=== PATIENT | male | born 1995 | race Caucasian/White ===

== ENCOUNTER → 2016-10-27 | Outpatient (CLI) | payer BC, OTHER ==
[2016-10-27 16:59] LABS: Basophils # (A) 0.1 k/uL (0-0.2); Basophils % (A) 1 %; CHCM 32.6; Eosinophils # (A) 0.2 k/uL (0-0.7); Eosinophils % (A) 1 %; HCT 42.2 % (39.0-53.0); HDW 2.54; HGB 13.6 gm/dL (13.0-17.5); Luc # (Auto) 0.15; Luc % (Auto) 1; Lymphocytes # (A) 3.1 k/uL (1.0-4.8); Lymphocytes % (A) 28 %; MCH 26.8 pg (25.0-35.0); MCHC 32.2 g/dL (31.0-37.0); MCV 83.5 fL (80.0-100.0); Mean Platelet Volume 6.9; Monocytes # (A) 0.6 k/uL (0-1.0); Monocytes % (A) 6 %; Neutrophils # (A) 6.9 k/uL (1.3-7.7); Neutrophils % (A) 63 %; RBC 5.06 m/uL (4.30-5.90); RDW 12.8 % (11.5-15.5); WBC (Perox) 11.59
[2016-10-27 17:04] LABS: INR 1.1 (<1.1); Partial Thromboplastin Time 25.7 sec (22.0-30.0); Prothrombin Time 10.9 sec (9.0-12.0)
[2016-10-27 17:12] LABS: Potassium 4.4 mmol/L (3.5-5.1)
== END | disposition home or self-care (01) ==
LOC: LABPAT 16:35
PROVIDERS: ATTEND Orthopaedic Surgery
DX: Z01.812 Encounter for preprocedural laboratory examination (principal); S82.841D Displaced bimalleolar fracture of right lower leg, subsequent encounter for closed fracture with routine healing
CPT/HCPCS: 80051; 85025; 85610; 85730

== ENCOUNTER 2016-10-29 13:55 | Observation (INO) | payer BC, OTHER ==
[2016-10-28 10:58] VITALS: BMI 24.4
--- NOTE | 2016-10-29 11:15 | HP ---
DATE OF ADMISSION: CHIEF COMPLAINT: Right ankle pain. HISTORY OF PRESENT ILLNESS: The patient is a 21-year-old, self-employed male who presents with right ankle pain after an injury on 10/25/2016. He jumped off a swing approximately 5 feet landing on his right side. He twisted his ankle. He is unable to bear weight after that. He went to the emergency room and had it reduced. He has been in a splint since. He denies previous injury. PAST MEDICAL HISTORY: Negative. CURRENT MEDICATIONS: None. He has allergies to AMOXICILLIN. FAMILY HISTORY: Negative. SOCIAL HISTORY: Negative for current tobacco or alcohol use. A 16-point review of systems otherwise reviewed and is noncontributory. On examination, the patient is approximately 6 foot tall, 180 pounds of mesomorphic habitus. He is alert and oriented x4. HEENT exam is nonfocal. He is nontender about the cervical, thoracic and lumbar spine. He has painless passive motion of the right hip. He is nontender about the right knee and proximal fibula. On examination of the right ankle he has moderate medial and lateral swelling. Skin is intact. He is tender over the distal fibula and the medial malleolus. His distal neurovascular exam appears to be intact in the right lower extremity. No mid or forefoot tenderness is noted. X-rays to include 2 views of the right ankle obtained in the office in the cast show a displaced bimalleolar ankle fracture with comminution of the distal fibular fragment. IMPRESSION: Displaced right bimalleolar ankle fracture. RECOMMENDATIONS: I talked to the patient at length regarding his treatment options. At this point, I recommend proceeding with surgery. We will plan to proceed with open reduction and internal fixation. Risks and benefits are discussed at length in layman terms.
[~2016-10-29 13:55] MED LIST: DEXAMETHASONE SOD PHOSPHATE 10 MG/ML 1 ML VIAL IV ONE; HYDROmorphone 1 MG/ML 1 ML SYRINGE IVP PRN; MIDAZOLAM 2 MG/2 ML VIAL IV PRN; ONDANSETRON 4 MG/2 ML VIAL IVP ONE; SCOPOLAMINE 1.5MG/72HR PATCH TRANSDERM ONE; ceFAZolin 2 GM in SODIUM CHLORIDE 0.9% 100 ML IVPB ONE
[2016-10-29 14:12] VITALS: RESP 16
[2016-10-29] MEDS ORDERED: LIDOCAINE 1% 20 ML VIAL (10MG/ML) FOR IV START INTRADERMA ONE (14:23)
[2016-10-29] MEDS: LACTATED RINGERS 1,000 ML IV SCH (14:23)
[2016-10-29] MEDS ORDERED: MIDAZOLAM 2 MG/2 ML VIAL ONE (14:56)
[2016-10-29] MEDS ORDERED: PROPOFOL 10 MG/ML 20 ML VIAL IV ONE (14:56)
[2016-10-29] MEDS ORDERED: fentaNYL (PF) 50 MCG/ML 2 ML AMP ONE (14:56)
[2016-10-29] MEDS ORDERED: ceFAZolin 1,000 MG in SODIUM CHLORIDE 0.9% 1,000 ML IRRIGATION ONE (15:26)
[2016-10-29] MEDS ORDERED: LACTATED RINGERS 1,000 ML IV ONE (16:17)
[2016-10-29] MEDS ORDERED: ONDANSETRON 4 MG/2 ML VIAL IVP PRN (16:39)
[2016-10-29] MEDS ORDERED: HYDROmorphone 1 MG/ML 1 ML SYRINGE IVP PRN (16:39)
--- NOTE | 2016-10-29 16:39 | XR ---
EXAMINATION TYPE: XR ankle limited RT DATE OF EXAM: 10/29/2016 4:27 PM COMPARISON: NONE HISTORY: Open reduction internal fixation, fracture TECHNIQUE: 2 images FINDINGS: Open reduction internal fixation of the distal fibula with plate and screws is evident. Scr ews placed through the medial malleolus of the distal tibia. IMPRESSION: 1. Fluoroscopy documenting open reduction internal fixation ankle repair
[2016-10-29] MEDS ORDERED: HYDROcodone/APAP 7.5-325MG 1 EACH TAB PO PRN (16:40)
--- NOTE | 2016-10-29 16:40 | FL ---
Fluoroscopy INDICATION: Pain FINDINGS: Fluoroscopy time: 45 seconds. Images obtained: 2. IMPRESSIONS: 1. Documentation of fluoroscopy.
--- NOTE | 2016-10-29 16:44 | P.OP ---
Date of Procedure: 10/29/16 Preoperative Diagnosis: Displaced right bimalleolar ankle fracture Postoperative Diagnosis: Same Procedure(s) Performed: Open reduction and internal fixation right bimalleolar ankle fracture Implants: [place] 6-hole one third tubular plate Anesthesia: spinal Surgeon: Joey Alonzo Assembly Press Operator #1: Casey Rucker Estimated Blood Loss (ml): 25 Pathology: none sent Condition: stable Disposition: PACU Indications for Procedure: The patient's a 21-year-old male who presents with right ankle pain after a recent fall. He was noted have a closed displaced bimalleolar ankle fracture. A discussion of the risks and benefits of operative intervention versus conservative measures was made with patient. He opted to proceed with surgery. Operative risks to include infection, neurovascular injury, development of blood clots, possible development of nonunion, possible development of malunion and need for subsequent procedures was discussed. Informed consent was obtained. Operative Findings: As below Description of Procedure: The patient was brought to the operating room, and after induction of spinal anesthesia the right lower extremity was prepped and draped in a normal fashion. The limb was elevated to facilitate exsanguination. The tourniquet was inflated to 270 mmHg. A 8 cm lateral incision was then made just along the subcutaneous border of the fibula. The skin was incised sharply. Subcutaneous tissues were divided bluntly. A branch of the superficial peroneal nerve was identified and retracted. The periosteum was elevated. The fracture site was identified and cleaned of clot and debris. There was a large posterior intercalary fragment. The fibular length was restored. A 6-hole one third tubular plate was then attached with 3.5 mm cortical screws of the appropriate length. Attempt was made to incorporate the intercalary fragment. Fluoroscopy was used to check the adequacy the reduction and gnosticism of fibular length. Attention was then paid towards the medial malleolar fracture. A 4 cm incision was made along the medial malleolus. Skin was incised sharply. Subcu tissues were divided bluntly. The fracture site was identified and cleaned of clot and debris. The medial talar dome was inspected. The fracture was then reduced and held in place with 2 guidewires. A cannulated drill was used over these. 4.0 mm x 44 mm cannulated partially-threaded screws were then inserted. There was good purchase and compression at the fracture site. Final fluoroscopic views to include AP mortise and lateral view showed adequate reduction of the medial malleolar fracture as well as the fibular shaft fracture. The mortise appeared to be intact and stable. A Coton test was performed and the syndesmosis appeared stable. The wounds were irrigated with normal saline. The subcu tissues were reapproximated with interrupted 2-0 Vicryl sutures. The skin closure proximal with adarsh. A sterile dressing was applied in addition to a bulky posterior splint. The tourniquet was deflated with approximately 1 hour total tourniquet time. The patient was awoken from sedation and transferred to recovery room in good condition. Blood loss was estimated 25 mL. No complications were incurred. Sponge and needle counts were correct at the end the case.
[2016-10-29] MEDS: HYDROcodone/APAP 7.5-325MG 1 EACH TAB PO PRN ×2 (18:20→23:45)
[2016-10-29] MEDS: HYDROmorphone 1 MG/ML 1 ML SYRINGE IVP PRN (20:38)
[2016-10-29] MEDS: ceFAZolin 2 GM in SODIUM CHLORIDE 0.9% 100 ML IVPB SCH (23:48)
[2016-10-30] MEDS: HYDROmorphone 1 MG/ML 1 ML SYRINGE IVP PRN (01:23)
[2016-10-30] MEDS: LACTATED RINGERS 1,000 ML IV SCH (06:30)
[2016-10-30] MEDS: HYDROcodone/APAP 7.5-325MG 1 EACH TAB PO PRN (07:07)
[2016-10-30] MEDS: ceFAZolin 2 GM in SODIUM CHLORIDE 0.9% 100 ML IVPB SCH (07:38)
[2016-10-30 07:39] VITALS: BP 129/64; PULSE 66; TEMP 98.3
--- NOTE | 2016-10-30 09:40 | P.DS ---
Providers Date of admission: 10/30/16 02:58 Expected date of discharge: 10/30/16 Attending physician: Joey Alonzo Primary care physician: Stated None Hospital Course: Date of admission: 10/29/2016 Date of discharge: 10/30/2016 Admission diagnosis: Status post ORIF right closed displaced bimalleolar ankle fracture Discharge diagnosis: Same Attending physician: Dr. Alonzo Surgical procedures: ORIF right closed displaced bimalleolar ankle fracture Brief history: Patient is a 21-year-old male who was seen and evaluated in the outpatient setting by Dr. Alonzo after sustaining a fall. It was noted due to the severity of the fracture, that surgical fixation would be the best option for treatment. He was scheduled for an ORIF procedure on 10/29/2016. Hospital course: Details of patient's surgery can be found in operative report. Patient tolerated the procedure well and was subsequently transported to orthopedic floor. Patient's orthopeidc and medical care was provided daily. Patient was treated with aspirin 325 mg for their postoperative DVT prophylaxis during their inpatient stay. Patient was noted to have a relatively uneventful postoperative course. Patient reported satisfactory pain control with oral pain medications by postoperative day 1. Patient showed satisfactory progress with physical therapy. Patient moved steadily through the program and had no difficulty meeting the goals by postoperative day 1. Given patient's otherwise satisfactory course and having met physical therapy goals, plan is to discharge patient home on postoperative day 1. Discharge condition/disposition: Patient will be discharged home in stable condition. Discharge medications: Instructions are given on resumption of patient's normal daily medications per primary care recommendation, in addition patient will be prescribed Armstrong 7.5 mg/325 mg, aspirin 325 mg. Discharge instructions: 1. Wound care and infection precautions, keep incision dry and covered while showering, no lotions, creams, moisturizers. No soaking, tubs, pools, hottubs. Do not scrub over the incision. 2. Nonweightbearing right lower extremity 3. Ice and elevate the right lower extremity often 4. Pain meds and anticoagulants per prescription. 5. Follow up in office at 2 weeks postop with Roddy Rucker PA-C 6. Follow up with your primary care doctor 7-10 days after discharge. 7. Contact [facility] with any questions, . Procedures: ORIF right closed displaced bimalleolar ankle fracture Patient Condition at Discharge: Good Plan - Discharge Summary New Discharge Prescriptions: Aspirin 325 mg PO DAILY #20 tab HYDROcodone/APAP 7.5-325MG [Armstrong 7.5] 1 - 2 each PO Q6HR PRN #60 tab PRN Reason: Pain Discharge Medication List HYDROcodone/APAP 7.5-325MG [Armstrong 7.5-325] 1 tab PO Q6HR PRN 10/28/16 [History] Aspirin 325 mg PO DAILY #20 tab 10/30/16 [Rx] Follow up Appointment(s)/Referral(s): Casey Rucker PAC [PHYSICIAN FABRIC WORKER LEADER] - 11/12/16 3:30 pm Activity/Diet/Wound Care/Special Instructions: Orthopedic discharge instructions: 1. Nonweightbearing right lower leg 2. Utilize crutches 3. Ice and elevate the foot often 4. Keep splint clean and dry, do not remove 5. Aspirin 325 mg once a day for DVT prophylaxis 6. Follow-up [facility] in 2 weeks Discharge Disposition: HOME SELF-CARE
--- NOTE | 2016-10-30 10:01 | P.PN ---
Subjective Principal diagnosis: Status post ORIF closed displaced right bimalleolar ankle fracture Patient is seen today resting in his hospital bed, he has family at bedside. He is doing very well at this point. His pain is well-controlled. He denies any neurological defects of the foot. He denies chest pain, shortness of breath , fever chills. Objective - Vital Signs Vital signs: Vital Signs Temp 98.3 F 10/30/16 07:00 Pulse 66 10/30/16 07:00 Resp 16 10/30/16 07:00 BP 129/64 10/30/16 07:00 Pulse Ox 98 10/30/16 07:00 Intake & Output 10/29/16 10/30/16 10/30/16 18:59 06:59 18:59 Intake Total 1401 160 Output Total 25 400 Balance 1376 -240 Weight 81.647 kg Intake: IV 1401 160 Lactated Ringers 1,000 ml 160 @ 20 mls/hr IV .Q24H JENNIFER Rx#:[id number] Output: Urine 400 Estimated Blood Loss 25 Other: Voiding Method Urinal # Voids 2 - Exam Right lower extremity: Splint is in good condition. Sensation to light touch in all the toes is intact. He is able to wiggle all the toes. Skin is warm to touch. Assessment and Plan Plan: Assessment: 1. Postop day #1 status post ORIF right closed displaced bimalleolar ankle fracture Plan: 1. Pain control, we'll discharge home on oral medications 2. Aspirin 325 mg once a day for DVT prophylaxis 3. Nonweightbearing, utilize crutches 4. Ice and elevate the foot often 5. Discharge instructions were discussed with patient at bedside 6. Will be discharged home today, follow-up in 2 weeks Time with Patient: Less than 30
== END 2016-10-30 10:51 | disposition home or self-care (01) ==
LOC: OR 13:55 → 3SUR 16:52 → OR 10-30 02:58 → 3SUR 10-30 02:58
PROVIDERS: ADMIT Orthopaedic Surgery; ATTEND Orthopaedic Surgery
DX: S82.841A Displaced bimalleolar fracture of right lower leg, initial encounter for closed fracture (principal); Y93.39 Activity, other involving climbing, rappelling and jumping off; Z88.0 Allergy status to penicillin
CPT/HCPCS: 97161; 73600; 27814; G0378; C1713; J2250; J1100; J0690 ×3; J2405; J3010; J1170 ×2; J2704; 96374

== ENCOUNTER → 2020-05-30 | Outpatient (CLI) | payer BC, OTHER | END | disposition home or self-care (01) | LOC: CPPFTMAIN 12:02 | PROVIDERS: ATTEND Internal Medicine | DX: J45.909 Unspecified asthma, uncomplicated (principal) | CPT/HCPCS: 94060; 94618; 94726; 94729 ==

== ENCOUNTER 2025-01-13 17:40 | Inpatient (IN) | payer MEDICAID, OTHER ==
--- NOTE | 2025-01-13 19:15 | ED ---
General Adult HPI - General Source: patient, police, RN notes reviewed Mode of arrival: ambulatory Limitations: no limitations <Fidencio Sunshine - Last Filed: 01/13/25 20:50> <Pascual Weems - Last Filed: 01/14/25 10:51> - General Chief complaint: Psychiatric Symptoms Stated complaint: Petition Time Seen by Provider: 01/13/25 18:42 - History of Present Illness Initial comments: Patient is a 29-year-old male present to the emergency department with family with concerns for psychiatric illness. Symptoms have been present over the past couple of weeks. Patient believes his phone has been hacked. Patient states he is getting multiple messages that his children are going to be kidnapped with odd pictures of them. Patient also heard music from his significant others tablet and threw it in the pond. Patient has been more restless recently. Patient has not been sleeping well. Patient disagrees and states he has been sleeping well. Patient is unclear if he feels paranoid. Mother is concerned that patient feels that people are out to get him or harm him. Patient does admit to being under more stress recently. (Fidencio Sunshine) - Related Data Home Medications Medication Instructions Recorded Confirmed No Known Home Medications 01/13/25 01/13/25 Allergies Allergy/AdvReac Type Severity Reaction Status Date / Time amoxicillin AdvReac hives Verified 01/13/25 19:32 Review of Systems ROS Other: All systems not noted in ROS Statement are negative. Constitutional: Denies: fever Eyes: Denies: eye pain ENT: Denies: ear pain Respiratory: Denies: dyspnea Cardiovascular: Denies: chest pain Psychiatric: Reports: as per HPI. Denies: suicidal thoughts <Fidencio Sunshine - Last Filed: 01/13/25 20:50> ROS Other: All systems not noted in ROS Statement are negative. <Pascual Weems - Last Filed: 01/14/25 10:51> ROS Statement: Those systems with pertinent positive or pertinent negative responses have been documented in the HPI. Past Medical History Additional Past Medical History / Comment(s): FX RT ANKLE History of Any Multi-Drug Resistant Organisms: None Reported Past Surgical History: No Surgical Hx Reported Additional Past Anesthesia/Blood Transfusion Reaction / Comment(s): NO PRIOR SURGICAL HX Past Psychological History: ADD/ADHD Smoking Status: Current every day smoker Past Alcohol Use History: None Reported Past Drug Use History: Marijuana - Past Family History Mother Family Medical History: Cancer <Fidencio Sunshine - Last Filed: 01/13/25 20:50> General Exam Limitations: no limitations General appearance: alert, in no apparent distress Head exam: Present: normocephalic Eye exam: Present: normal appearance Neck exam: Present: normal inspection Respiratory exam: Present: normal lung sounds bilaterally Cardiovascular Exam: Present: regular rate, normal rhythm GI/Abdominal exam: Present: soft. Absent: tenderness Extremities exam: Present: normal inspection Neurological exam: Present: alert Psychiatric exam: Present: other (Patient is mildly anxious and mildly restless) Expanded Focused psych exam: Present: paranoid Skin exam: Present: normal color <Fidencio Sunshine - Last Filed: 01/13/25 20:50> Course Vital Signs 01/13/25 01/13/25 01/13/25 17:51 18:52 19:32 Temperature 98.1 F Pulse Rate 182 H 112 H 98 Respiratory 20 16 Rate Blood Pressure 154/82 151/90 O2 Sat by Pulse 94 L 100 Oximetry 01/14/25 02:00 Temperature Pulse Rate 90 Respiratory 18 Rate Blood Pressure 146/83 O2 Sat by Pulse 99 Oximetry Medical Decision Making <Fidencio Sunshine - Last Filed: 01/13/25 20:50> <Pascual Weems - Last Filed: 01/14/25 10:51> - Medical Decision Making Was pt. sent in by a medical professional or institution (, PA, SIGN MAKER, urgent care, hospital, or custodial...) When possible be specific @ -No Did you speak to anyone other than the patient for history (EMS, parent, family, police, friend...)? What history was obtained from this source @ -Mother and significant other are present to help provide history and concerns Did you review nursing and triage notes (agree or disagree)? Why? @ -I reviewed and agree with nursing and triage notes Were old charts reviewed (outside hosp., previous admission, EMS record, old EKG, old radiological studies, urgent care reports/EKG's, custodial records)? Report findings @ -No old charts were reviewed Differential Diagnosis (chest pain, altered mental status, abdominal pain women, abdominal pain men, vaginal bleeding, weakness, fever, dyspnea, syncope, headache, dizziness, GI bleed, back pain, seizure, CVA, palpatations, mental health, musculoskeletal)? @ -Differential Mental Health Depression, anxiety, bipolar, psychosis, schizophrenia, borderline personality, situational depression, adjustment disorder, behavioral disorder, brain tumor, malingering, substance abuse, encephalopathy, medication reaction, dementia, hypothyroidism, degenerative neurologic disorder, lupus.... This is not meant to be all-inclusive list EKG interpreted by me (3pts min.). @ -As above X-rays interpreted by me (1pt min.). @ -None done CT interpreted by me (1pt min.). @ -None done U/S interpreted by me (1pt. min.). @ -None done What testing was considered but not performed or refused? (CT, X-rays, U/S, labs)? Why? @ -None What meds were considered but not given or refused? Why? @ -None Did you discuss the management of the patient with other professionals (professionals i.e. , PA, SIGN MAKER, lab, RT, psych nurse, social work coordinator, analyst competitive intelligence, teacher, customs officer, protective services case worker)? Give summary @ -Mental health worker Was smoking cessation discussed for >3mins.? @ -No Was critical care preformed (if so, how long)? @ -No Were there social determinants of health that impacted care today? How? (Homelessness, low income, unemployed, alcoholism, drug addiction, transportation, low edu. Level, literacy, decrease access to med. care, group home, rehab)? @ -No Was there de-escalation of care discussed even if they declined (Discuss DNR or withdrawal of care, Hospice)? DNR status @ -No What co-morbidities impacted this encounter? (DM, HTN, Smoking, COPD, CAD, Cancer, CVA, ARF, Chemo, Hep., AIDS, mental health diagnosis, sleep apnea, morbid obesity)? @ -None Was patient admitted / discharged? Hospital course, mention meds given and route, prescriptions, significant lab abnormalities, going to OR and other pertinent info. @ -Patient presents with paranoia and restlessness. Patient cleared for mental health service for final disposition Undiagnosed new problem with uncertain prognosis? @ -No Drug Therapy requiring intensive monitoring for toxicity (Heparin, Nitro, Insulin, Cardizem)? @ -No Were any procedures done? @ -No Diagnosis/symptom? @ -Paranoia Acute, or Chronic, or Acute on Chronic? @ -Acute Uncomplicated (without systemic symptoms) or Complicated (systemic symptoms)? @ -Default Side effects of treatment? @ -No Exacerbation, Progression, or Severe Exacerbation? @ -No Poses a threat to life or bodily function? How? (Chest pain, [place], [place], pneumonia, PE, COPD, DKA, ARF, appy, cholecystitis, CVA, Diverticulitis, Homicidal, Suicidal, threat to staff... and all critical care pts) @ -No (Fidencio Sunshine) Was patient admitted / discharged? Hospital course, mention meds given and route, prescriptions, significant lab abnormalities, going to OR and other pertinent info. @ -Patient was signed out to me at 7 AM. I went back into reevaluate the patient he was still under the impression the computer was talking to him and telling him that maybe his daughter would be kidnapped. Patient states he is also worried that people are after him. Patient does admit to smoking marijuana daily. Undiagnosed new problem with uncertain prognosis? @ -No Drug Therapy requiring intensive monitoring for toxicity (Heparin, Nitro, Insulin, Cardizem)? @ -No Were any procedures done? @ -No Diagnosis/symptom? @ -Acute psychosis Acute, or Chronic, or Acute on Chronic? @ -Acute Uncomplicated (without systemic symptoms) or Complicated (systemic symptoms)? @ -Complicated Side effects of treatment? @ -No Exacerbation, Progression, or Severe Exacerbation? @ -No Poses a threat to life or bodily function? How? (Chest pain, [place], [place], pneumonia, PE, COPD, DKA, ARF, appy, cholecystitis, CVA, Diverticulitis, Homicidal, Suicidal, threat to staff... and all critical care pts) @ -No (Pascual Weems) - Lab Data Lab Results 01/14/25 Range/Units 02:45 Urine Opiates Screen Not Detected (NotDetected) Ur Oxycodone Screen Not Detected (NotDetected) Urine Methadone Screen Not Detected (NotDetected) Ur Barbiturates Screen Not Detected (NotDetected) U Tricyclic Antidepress Not Detected (NotDetected) Ur Phencyclidine Scrn Not Detected (NotDetected) Ur Amphetamines Screen Not Detected (NotDetected) U Methamphetamines Scrn Not Detected (NotDetected) U Benzodiazepines Scrn Not Detected (NotDetected) Urine Cocaine Screen Not Detected (NotDetected) U Marijuana (THC) Screen Detected H (NotDetected) Disposition Is patient prescribed a controlled substance at d/c from ED?: No <Fidencio Sunshine - Last Filed: 01/13/25 20:50> Time of Disposition: 10:51 <Pascual Weems - Last Filed: 01/14/25 10:51> Clinical Impression: Paranoia, Psychosis Disposition: ADMITTED IP TO THIS HOSP Referrals: Darrion Briscoe MD [Primary Care Provider] - 1-2 days
[2025-01-13] MEDS ORDERED: LORazepam 1 MG TAB PO PRN (20:50)
[2025-01-13] MEDS: NICOTINE 21MG/24HR PATCH TRANSDERM STA (21:13)
[2025-01-14 03:26] LABS: Amphetamine Screen,Urine Not Detected (NotDetected); Barbiturate Screen,Urine Not Detected (NotDetected); Benzodiazepines Screen,Urine Not Detected (NotDetected); Cocaine Screen,Urine Not Detected (NotDetected); Methadone Screen, Urine Not Detected (NotDetected); Opiate Screen,Urine Not Detected (NotDetected); Oxycodone Screen, Urine Not Detected (NotDetected); Phencyclidine Screen,Urine Not Detected (NotDetected); Tricyclic Antidepressant,Urine Not Detected (NotDetected); Urn Cannabinoid Scrn Detected (NotDetected)
[2025-01-14] MEDS ORDERED: ACETAMINOPHEN TAB 325 MG TAB PO PRN (13:19)
[2025-01-14] MEDS ORDERED: MAG HYDROX/AL HYDROX/SIMETH 355 ML BOTTLE PO PRN (13:19)
[2025-01-14] MEDS ORDERED: LORazepam 1 MG TAB PO PRN (13:19)
[2025-01-14] MEDS ORDERED: haloperidoL 5 MG TAB PO PRN (13:19)
[2025-01-14] MEDS ORDERED: MAGNESIUM HYDROXIDE 2,400 MG/30 ML CUP PO PRN (13:19)
[2025-01-14] MEDS ORDERED: IBUPROFEN 600 MG TAB PO PRN (13:19)
[2025-01-14] MEDS ORDERED: LORazepam 2 MG/ML INJ IM PRN (13:24)
[2025-01-14] MEDS ORDERED: HALOPERIDOL LACTATE 5 MG/ML 1 ML VIAL IM PRN (13:24)
[2025-01-14] MEDS: NICOTINE 14MG/24HR PATCH TRANSDERM SCH (14:01)
[2025-01-15 09:05] LABS: Basophils # (A) 0.05 10*3/uL (0.00-0.10); Basophils % (A) 0.5 %; Eosinophils # (A) 0.08 10*3/uL (0.04-0.35); Eosinophils % (A) 0.8 %; HCT 48.1 % (39.6-50.0); HGB 15.7 g/dL (13.0-17.0); Lymphocytes % (A) 22.9 %; MCH 27.5 pg (27.0-32.0); MCHC 32.6 g/dL (32.0-37.0); MCV 84.2 fL (80.0-97.0); Mean Platelet Volume 11.1 fL (9.5-12.2); Monocytes # (A) 0.77 10*3/uL (0.20-1.00); Monocytes % (A) 7.3 %; Neutrophils # (A) 7.14 10*3/uL (1.80-7.70); Neutrophils % (A) 68.1 %; Platelet Count 325 10*3/uL (140-440); RBC 5.71 10*6/uL (4.40-5.60); RDW 12.7 % (11.5-14.5); WBC 10.48 10*3/uL (4.50-10.00)
[2025-01-15 09:25] LABS: ALT 14 U/L (4-49); AST 19 U/L (17-59); African American GFR (CKD) >90 (>60 ml/min/1.73 sqM); Albumin 5.1 g/dL (3.5-5.0); Alkaline Phosphatase 71 U/L (38-126); Anion Gap 13 mmol/L; Bilirubin, Delta 0.2 mg/dL (0.0-0.2); Bilirubin,Unconjugated 1.7 mg/dL (0.0-1.1); Blood Urea Nitrogen 16 mg/dL (9-20); Calcium 10.3 mg/dL (8.4-10.2); Carbon Dioxide 22 mmol/L (22-30); Chloride 105 mmol/L (98-107); Glucose 127 mg/dL (74-99); Non-African American GFR(CKD) 83 (>60 ml/min/1.73 sqM); Potassium 4.6 mmol/L (3.5-5.1); Sodium 140 mmol/L (137-145); Total Bilirubin 1.9 mg/dL (0.2-1.3); Total Protein 8.1 g/dL (6.3-8.2)
[2025-01-15] MEDS: ARIPiprazole 2 MG TAB PO SCH (10:41)
[2025-01-15 12:58] LABS: Chol/HDL Ratio 4.87 Ratio; LDL Cholesterol,Calculated 109.7 mg/dL (0.0-131.0)
--- NOTE | 2025-01-15 14:38 | P.MDCNMH ---
History of Present Illness H&P Date: 01/15/25 Patient is a 29-year-old with marijuana use disorder, who presented to the ER due to concern for psychiatric illness, paranoid ideations currently being admitted [facility], sound physicians consulted for medical management. Patient states that he feels significantly better since admission. He denied any nausea, vomiting, dizziness, lightheadedness, abdominal pain, jaundice, chest pain, shortness of breath, has not had a bowel movement yet, normal and not constipated, no dysuria. Vital signs reviewed, patient is afebrile with normal heart rate, blood pressure 140/90. Lab work significant for mild leukocytosis without left shift 10.4, BMP with normal electrolytes, creatinine, A1c 5.8, calcium 10.3, total bilirubin elevated at 1.9 with unconjugated bilirubin 1.7, LDL 109, THC 1.26, UDS positive for THC, negative COVID. Pertinent positives and negatives as discussed in HPI, a complete review of systems was performed and all other systems are negative. Patient seen and examined at bedside. Vital signs reviewed General: nontoxic, no distress, appears at stated age Derm: warm, dry Head: atraumatic, normocephalic, symmetric Eyes: EOMI, no lid lag, anicteric sclera, pupils equal round reactive to light ENT: Nose and ears atraumatic Neck: No thyromegaly, supple Mouth: no lip lesion, mucus membranes moist Cardiovascular: S1S2 reg, no murmur, no edema Lungs: clear to auscultation bilateral, no rhonchi, no rales, no wheeze, no accessory muscle use Abdominal: soft, nontender to palpation, no guarding, no appreciable organomegaly Ext: no gross muscle atrophy, muscle strength muscle strength 5 out of 5 in all 4 extremities, no contractures Neuro: CN II-XII grossly intact Psych: normal affect Assessment/Plan: Elevated bilirubin 1.9. No abdominal pain or tenderness. No history of jaundice, splenomegaly, will check LDH, haptoglobin repeat fractionated bilirubin and order ultrasound Hypercalcemia: Recheck BMP, encourage oral hydration Marijuana use disorder: Counseled on cessation Elevated blood pressure readings without diagnosis of hypertension, continue to monitor blood pressure, follow-up with primary care physician, patient blood pressure be persistently elevated will consider starting antihypertensive Psychosis: Management per primary psychiatric team Past Medical History Past Medical History: No Reported History Additional Past Medical History / Comment(s): FX RT ANKLE about 5-6 years ago History of Any Multi-Drug Resistant Organisms: None Reported Past Surgical History: No Surgical Hx Reported Additional Past Anesthesia/Blood Transfusion Reaction / Comment(s): NO PRIOR SURGICAL HX Past Psychological History: ADD/ADHD Smoking Status: Current every day smoker Past Alcohol Use History: None Reported Past Drug Use History: Marijuana - Past Family History Mother Family Medical History: Cancer Medications and Allergies Home Medications Medication Instructions Recorded Confirmed Type No Known Home Medications 01/13/25 01/13/25 History Allergies Allergy/AdvReac Type Severity Reaction Status Date / Time amoxicillin AdvReac hives Verified 01/13/25 19:32 Physical Exam Vitals: Vital Signs Temp Pulse Resp BP Pulse Ox 01/15/25 08:36 97.9 F 61 20 140/90 100 01/14/25 21:00 98.6 F 79 16 129/91 100 Intake and Output 01/14/25 01/15/25 01/15/25 22:59 06:59 14:59 Other: Weight 67.3 kg Cranial Nerve Examination - Cranial Nerves Cranial Nerve II- Optic: Intact Cranial Nerve III- Oculomotor: Intact Cranial Nerve IV- Trochlear: Intact Cranial Nerve V- Trigeminal: Intact Cranial Nerve - Abducens: Intact Cranial Nerve VII- Facial: Intact Cranial Nerve VIII- Auditory: Intact Cranial Nerve IX- Glossopharyngeal: Intact Cranial Nerve X- Vagus: Intact Cranial Nerve XI- Accessory: Intact Cranial Nerve XII- Hypoglossal: Intact Results CBC & Chem 7: 01/15/25 08:35 01/15/25 08:35 Labs: Abnormal Lab Results - Last 24 Hours (Table) 01/15/25 01/15/25 Range/Units 08:35 08:35 WBC 10.48 H (4.50-10.00) 10*3/uL RBC 5.71 H (4.40-5.60) 10*6/uL Glucose 127 H (74-99) mg/dL Calcium 10.3 H (8.4-10.2) mg/dL Total Bilirubin 1.9 H (0.2-1.3) mg/dL Unconjugated Bilirubin 1.7 H (0.0-1.1) mg/dL Albumin 5.1 H (3.5-5.0) g/dL HDL Cholesterol 35.50 L (40.00-60.00) mg/dL
--- NOTE | 2025-01-15 15:14 | P.HP ---
Psychiatric H&P - . H&P Date: 01/15/25 History & Physical: Allergies Allergy/AdvReac Type Severity Reaction Status Date / Time amoxicillin AdvReac hives Verified 01/13/25 19:32 Vital Signs Temp 98.6 F 01/14/25 21:00 Pulse 79 01/14/25 21:00 Resp 16 01/14/25 21:00 BP 129/91 01/14/25 21:00 Pulse Ox 100 01/14/25 21:00 FiO2 Intake & Output 01/14/25 01/15/25 01/15/25 18:59 06:59 18:59 Weight 67.132 kg Laboratory Last Values Urine Opiates Screen Not Detected (NotDetected) 01/14/25 02:45 Ur Oxycodone Screen Not Detected (NotDetected) 01/14/25 02:45 Urine Methadone Screen Not Detected (NotDetected) 01/14/25 02:45 Ur Barbiturates Screen Not Detected (NotDetected) 01/14/25 02:45 U Tricyclic Antidepress Not Detected (NotDetected) 01/14/25 02:45 Ur Phencyclidine Scrn Not Detected (NotDetected) 01/14/25 02:45 Ur Amphetamines Screen Not Detected (NotDetected) 01/14/25 02:45 U Methamphetamines Scrn Not Detected (NotDetected) 01/14/25 02:45 U Benzodiazepines Scrn Not Detected (NotDetected) 01/14/25 02:45 Urine Cocaine Screen Not Detected (NotDetected) 01/14/25 02:45 U Marijuana (THC) Screen Detected (NotDetected) H 01/14/25 02:45 SARS-CoV-2 (PCR) Not Detected (Not Detectd) 01/14/25 11:00 Dictation was produced using [employer] dictation software. Please excuse any grammatical, word or spelling errors. IDENTIFYING DATA: Patient is a 29 years old male presented to the ED with his family for psychiatric evaluation. HPI: Patient presented to the hospital with his family for psychiatric evaluation, he has been believing that his phone has been hacked, and he is getting multiple messages that his children are going to be kidnapped without pictures of them. Reported that he heard music from his significant other tablet and throat within the pond. This reported that he has been restless lately, not sleeping well, the patient mother was concerned about his behavior. UDS positive for cannabis, it is reported that he used cannabis heavily. Per clinical certification " patient states he got a message on the Internet that his kids was going to be kidnapped. He also states sometimes someone is talking to him from his computer. He thinks people are out to get him." Per petition from the patient mother, " people are after him, family and kids, people tried killing him, Trump and Ryan musk are trying to get him. Predators are coming to get the kids, provide to take family phone to throw in the pond. He has been using weed all day and night, lack of sleep, no showering." Upon evaluation in the unit the patient was in his room, agreed to speak with the repairer typewriter in the office. He states that he had a panic attack, "I'm very sure my device is compromise, a picture came out and says my daughter is kidnaped" states that it happened couple of weeks ago, states that "I searched my daughter name, and they gave me targeted adds." States that he spoke with the police about it. States that his mother wanted him to get some help "to fix his devices." States that his phone, and his daughter tablet are hacked. States that he does not know who does it or why. States that all of it started 2 weeks before and he was fine before. States he feel down at time started about 2 weeks ago, claims feeling hopeless, helpless at time. He rated depression at 0/10. He states that his sleep is good, reported 8 hours of sleep. Reported that he sleeps every night, and never been awake for days. Appetite is good, reported that he may lost 10-15 ib over the last couple of months, states that it took sometime for food stamps to come in. He denied any current SI/HI or self harm. He denied any previous history of suicide or self harm. At this time patient denies any auditory or visual hallucinations, reported that over the past week he has been paranoid, and reported that "a limo drove by my house" states that may be someone in the "dark web" is after me. Patient denies any flight of ideas, racing thoughts and increased in goal directed behavior however reported that he had racing thoughts 2 weeks ago. Patient admits to using tobacco, 1 ppd for the last 15 yrs, denied using alcohol. He admitted to using cannabis 2-3 times a day, he has been using since 13 yo. He denied using any other substance. States that his mother is toxic to him, keep asking him to get help. He states that he does not consider medication to help with his mood. PAST PSYCHIATRIC HISTORY: - Inpatient Hospitalizations: denies - Outpatient Care: denies. Used to see a therapist when he was 14 yo, does not remember why. - Current Psychotropics: denies - Prior Psychotropics/Therapy: States that he was on Seroquel when he was 13 yo - Prior Psychiatric dx: could not recall, may be ADHD - Suicidal Attempts: denies - Self Harm: denies - Trauma History: denies PMH: as per ER note Additional Past Medical History / Comment(s): FX RT ANKLE History of Any Multi-Drug Resistant Organisms: None Reported Past Surgical History: No Surgical Hx Reported Additional Past Anesthesia/Blood Transfusion Reaction / Comment(s): NO PRIOR SURGICAL HX Past Psychological History: ADD/ADHD Smoking Status: Current every day smoker Past Alcohol Use History: None Reported Past Drug Use History: Marijuana ALLERGIES: as per EMR CHEMICAL DEPENDENCY HISTORY: as per HPI FAMILY PSYCHIATRIC/SUBSTANCE USE HISTORY: denies SOCIAL HISTORY: Patient was born and raised in [place], claims that he has his BD. Single never . He has 3 children, 10, 8, and 3 yo. He is unemployed. Used to work for [employer], denied any legal issues. MENTAL STATUS EXAM: General Appearance: Patient appears to be stated age is alert, directable, and attempts to cooperate. Patient appears to have poor hygiene and grooming. Behavior: Patient is seated without any agitated behavior. Speech: Patient's speech is fluent and nonpressured. Mood/Affect: Patient reports their mood is "anxious", affect is congruent and constricted. Suicidality/Homicidality: Patient denies having any homicidal ideation intent or plan. Denies any suicidal ideations intent or plan Perceptions: Patient denies any visual hallucinations and denies any auditory hallucinations Though content/process: There is no evidence of any delusional thought content and thought process is linear and goal-directed. Memory and concentration: AOX3, grossly intact for the purposes of this session. Can spell "WORLD" backwards Judgment and insight: poor STRENGTHS/WEAKNESSES: strength is that patient is resilient. Weakness is that patient has poor judgment and is impulsive INTELLECT: average IMPRESSIONS: Patient is a 29 years old male with past psychiatric history of ADHD, presenting for psychiatric evaluation after having paranoid behavior, patient has been using cannabis heavily lately which could induce or caused his current symptoms of paranoia. Reported that he has been thinking that some 1 or somebody is monitoring his phone or his daughter tablet for some reason and could not elaborate why. He admitted to using cannabis heavily lately and reported that he would like to cut down on his cannabis use since it could cause his paranoia. He denied any current suicidal, self-harm or homicidal thoughts or behavior, auditory or visual hallucination. Denied any previous history of suicide. Patient agreed to start Abilify, psychoeducation was provided, risk, benefit and side effect discussed. Patient came in on a petition and clinical CERT however he agreed to take medication and follow our treatment recommendation, he agreed to sign the voluntary form and medication consent form. Psychosis unspecified, rule out due to substance use Cannabis use disorder, severe PLAN: -Patient is admitted under voluntary status to [facility]HU for stabilization of psychiatric symptoms and safety. Patient has signed adult voluntary form and medication consent and is placed in patient's chart. Patient came in on a petition and clinical CERT however he agreed to take medication and follow our treatment recommendation. -Medications : -Start Abilify 2 mg p.o. daily -Ativan and Haldol PRN for agitation/aggression -Patient was counselled on cannabis use and desired to cut back on use -Patient was informed of the risks, benefits and side effects of the medication and patient verbally consented to taking the medications. Patient signed med consent form and was placed in chart. -Internal Medicine consult to perform medical evaluation and physical. -NRT - nicotine patch -SW on board for discharge planning. Encourage patient to participate in groups to work on coping skills. 01/15/25 07:56 01/15/25 08:53
[2025-01-16] MEDS: NICOTINE 7MG/24HR PATCH TRANSDERM SCH (08:19)
[2025-01-16 08:21] LABS: Bilirubin, Delta 0.2 mg/dL (0.0-0.2); Bilirubin,Unconjugated 1.4 mg/dL (0.0-1.1); Total Bilirubin 1.6 mg/dL (0.2-1.3)
[2025-01-16 10:58] VITALS: BMI 20.1
--- NOTE | 2025-01-16 12:24 | P.PN ---
Progress Note - Text Progress Note Date: 01/16/25 Interval History: Patient was seen today for psychiatric follow up. Patient was wandering the h allways agreeable to speak to the publicity writer's office today. Patient states that he is doing a bit better today, claims that he came to the hospital because he believes that somebody was acting his phone. He claims that he was getting "popups" on his phone telling him not to call people. He claims that he reported to the police, claims that he feels a bit better about this since being on the unit. He has been taking his medications, claims that he did not tolerate the first dose of Abilify fairly well however he is agreeable to continue taking it. Claims that he did have initially some anxiety however today he is feeling a bit better. Denies any auditory or visual hallucinations denies any suicidal or homicidal ideations intent or plan. Claims that he is sleeping fairly well MENTAL STATUS EXAM: General Appearance: Patient appears to be thin, stated age is alert, directable, and attempts to cooperate. Patient appears to have improving hygiene and grooming. Behavior: Patient is seated without any agitated behavior. Attempts to cooperate, mildly paranoid Speech: Patient's speech is fluent and nonpressured. Mood/Affect: Patient reports their mood is "a bit better", affect is congruent and constricted. Improving mildly Suicidality/Homicidality: Patient denies having any homicidal ideation intent or plan. Denies any suicidal ideations intent or plan Perceptions: Patient denies any visual hallucinations and denies any auditory hallucinations Though content/process: There is no evidence of any delusional thought content and thought process is linear and goal-directed. Endorsing paranoia Memory and concentration: AOX3, grossly intact for the purposes of this session Judgment and insight: poor, improving mildly IMPRESSIONS: Psychosis unspecified, rule out due to substance use Cannabis use disorder, severe PLAN: -Patient is admitted under voluntary status to [facility] for stabilization of psychiatric symptoms and safety. Patient has signed adult voluntary form and medication consent and is placed in patient's chart. -Medications : Increase Abilify 2.5 mg p.o. daily for psychosis -Ativan and Haldol PRN for agitation/aggression -NRT - nicotine patch -SW on board for discharge planning. Encourage patient to participate in groups to work on coping skills. Likely discharge Thursday if patient is improving psychiatrically.
[2025-01-17] MEDS: ARIPiprazole 5 MG TAB PO SCH (08:36)
[2025-01-17] MEDS: NICOTINE GUM (POLACRILEX) 2 MG GUM BUCCAL PRN (09:17)
--- NOTE | 2025-01-17 11:31 | P.PN ---
Progress Note - Text Progress Note Date: 01/17/25 Interval History: Patient was seen today for psychiatric follow up. Patient was wandering the h allways earlier and then attending group doing activities and he was agreeable to speak to the telegraphic typewriter installer's office today. Patient appears to have improvement in eye contact today, he was fairly agreeable and pleasant. He was minimizing the restlessness and also insomnia that he has been having. He slept only 2 hours according to nursing report. He was up earlier this morning pacing the hallways. He was agreeable to try propranolol and also Remeron to help him with sleep. He has been tried to go to groups participating, he is not endorsing any paranoia today or any other psychotic symptoms. He has been up for meals, eating well.Denies any auditory or visual hallucinations denies any suicidal or homicidal ideations intent or plan. MENTAL STATUS EXAM: General Appearance: Patient appears to be thin, stated age is alert, directable, and attempts to cooperate. Patient appears to have improving hygiene and grooming. Behavior: Patient is seated without any agitated behavior. Attempts to cooperate, not endorsing any paranoia Speech: Patient's speech is fluent and nonpressured. Mood/Affect: Patient reports their mood is "ok", affect is congruent and constricted. Improving mildly Suicidality/Homicidality: Patient denies having any homicidal ideation intent or plan. Denies any suicidal ideations intent or plan Perceptions: Patient denies any visual hallucinations and denies any auditory hallucinations Though content/process: There is no evidence of any delusional thought content and thought process is linear and goal-directed. Not endorsing paranoia today Memory and concentration: AOX3, grossly intact for the purposes of this session Judgment and insight: Superficial, improving mildly IMPRESSIONS: Psychosis unspecified, rule out due to substance use Cannabis use disorder, severe PLAN: -Patient is admitted under voluntary status to [facility] for stabilization of psychiatric symptoms and safety. Patient has signed adult voluntary form and medication consent and is placed in patient's chart. -Medications : Abilify 2.5 mg p.o. daily for psychosis added propranolol 20 mg twice daily for restlessness/akathisia, Remeron 15 mg nightly for sleep/mood -Ativan and Haldol PRN for agitation/aggression -NRT - nicotine patch -SW on board for discharge planning. Encourage patient to participate in groups to work on coping skills. Likely discharge -thursday if patient is improving psychiatrically.
[2025-01-17] MEDS: PROPRANOLOL 20 MG TAB PO SCH (12:24)
[2025-01-17] MEDS: MIRTAZAPINE 15 MG TAB PO SCH (20:51)
[2025-01-18 00:53] VITALS: RESP 16
--- NOTE | 2025-01-18 10:42 | P.PN ---
Progress Note - Text Progress Note Date: 01/18/25 Interval History: Patient was seen today for psychiatric follow up. Patient was wandering the h allways earlier. he claims he has been going to groups and trying to participate in the [employer]. Patient claims that he is doing better today with regards to his mood and anxiety. He states that he has not been feeling paranoid any longer. Claims that he is eating well, we spoke about the medication plan and adjustments. He states that he believes the Remeron was "too strong" for him and states that he slept about 8 or 9 hours. He wants to try the half dose for tonight. Patient was fairly focused on discharge with me tomorrow. Denies any auditory or visual hallucinations denies any suicidal or homicidal ideations intent or plan. MENTAL STATUS EXAM: General Appearance: Patient appears to be thin, stated age is alert, directable, and attempts to cooperate. Patient appears to have improving hygiene and grooming. Behavior: Patient is seated without any agitated behavior. Attempts to cooperate, not endorsing any paranoia Speech: Patient's speech is fluent and nonpressured. Mood/Affect: Patient reports their mood is "good", affect is congruent and Improving mildly Suicidality/Homicidality: Patient denies having any homicidal ideation intent or plan. Denies any suicidal ideations intent or plan Perceptions: Patient denies any visual hallucinations and denies any auditory hallucinations Though content/process: There is no evidence of any delusional thought content and thought process is linear and goal-directed. Not endorsing paranoia today Memory and concentration: AOX3, grossly intact for the purposes of this session Judgment and insight: improving mildly IMPRESSIONS: Psychosis unspecified, rule out due to substance use Cannabis use disorder, severe PLAN: -Patient is admitted under voluntary status to [facility] for stabilization of psychiatric symptoms and safety. Patient has signed adult voluntary form and medication consent and is placed in patient's chart. -Medications : Abilify 2.5 mg p.o. daily for psychosis, propranolol 20 mg twice daily for restlessness/akathisia, decrease Remeron 7.5 mg nightly for sleep/mood -Ativan and Haldol PRN for agitation/aggression -NRT - nicotine patch -SW on board for discharge planning. Encourage patient to participate in groups to work on coping skills. Likely discharge if patient is improving psychiatrically.
[2025-01-18] MEDS: NICOTINE GUM (POLACRILEX) 2 MG GUM BUCCAL PRN (18:32)
[2025-01-18] MEDS: MIRTAZAPINE 15 MG TAB PO SCH (20:08)
[2025-01-19 09:23] VITALS: BP 127/88; PULSE 57; TEMP 97.6
--- NOTE | 2025-01-19 10:56 | P.DS ---
Providers Date of admission: 01/14/25 12:51 Expected date of discharge: 01/19/25 Attending physician: Kaveh Lawson MD Consults: 01/14/25 13:19 Consult Physician Routine Consulting Provider: Darrel Physician Consult Reason/Comments: H&P, medical follow up Do you want consulting provider notified?: Yes Primary care physician: Darrion Briscoe - Discharge Diagnosis(es) (1) Unspecified psychosis Current Visit: Yes Status: Acute Priority: High (2) Cannabis use disorder Current Visit: Yes Status: Acute Priority: Medium (3) Nicotine dependence Current Visit: Yes Status: Acute Priority: Low Hospital Course: Admission HPI: Admission note was completed by Dr Melchor "patient is a 29 years old male presented to the ED with his family for psychiatric evaluation. Patient presented to the hospital with his family for psychiatric evaluation, he has been believing that his phone has been hacked, and he is getting multiple messages that his children are going to be kidnapped without pictures of them. Reported that he heard music from his significant other tablet and throat within the pond. This reported that he has been restless lately, not sleeping well, the patient mother was concerned about his behavior. UDS positive for cannabis, it is reported that he used cannabis heavily. Per clinical certification " patient states he got a message on the Internet that his kids was going to be kidnapped. He also states sometimes someone is talking to him from his c omputer. He thinks people are out to get him." Per petition from the patient mother, " people are after him, family and kids, people tried killing him, Trump and [place] [employer] are trying to get him. Predators are coming to get the kids, provide to take family phone to throw in the pond. He has been using weed all day and night, lack of sleep, no showering." Upon evaluation in the unit the patient was in his room, agreed to speak with the comic writer in the office. He states that he had a panic attack, "I'm very sure my device is compromise, a picture came out and says my daughter is kidnaped" states that it happened couple of weeks ago, states that "I searched my daughter name, and they gave me targeted adds." States that he spoke with the police about it. States that his mother wanted him to get some help "to fix his devices." States that his phone, and his daughter tablet are hacked. States that he does not know who does it or why. States that all of it started 2 weeks before and he was fine before. States he feel down at time started about 2 weeks ago, claims feeling hopeless, helpless at time. He rated depression at 0/10. He states that his sleep is good, reported 8 hours of sleep. Reported that he sleeps every night, and never been awake for days. Appetite is good, reported that he may lost 10-15 ib over the last couple of months, states that it took sometime for food stamps to come in. He denied any current SI/HI or self harm. He denied any previous history of suicide or self harm. At this time patient denies any auditory or visual hallucinations, reported that over the past week he has been paranoid, and reported that "a limo drove by my house" states that may be someone in the "dark web" is after me. Patient denies any flight of ideas, racing thoughts and increased in goal directed behavior however reported that he had racing thoughts 2 weeks ago. Patient admits to using tobacco, 1 ppd for the last 15 yrs, denied using alcohol. He admitted to using cannabis 2-3 times a day, he has been using since 13 yo. He denied using any other substance. States that his mother is toxic to him, keep asking him to get help. He states that he does not consider medication to help with his mood." Hospital course: Upon admission to the unit patient was directable and agreeable to commence treatment and signed adult voluntary form. Patient was initially bizarre, paranoid however with time and treatment patient got along well with other patients on the unit and followed unit protocol. Patient was compliant with the medications and denied any side effects throughout hospital course. Patient was started on Abilify increased to a dose of 2.5 mg daily for mood stabilization/psychosis. Propranolol 20 mg twice daily for akathisia/restlessness/anxiety, Remeron 7.5 mg nightly for mood/insomnia. Patient spoke of his stressors and engaged in therapy both group/activity therapy. Patient was also seen by medical team for history and physical exam. Throughout the course of the hospitalization patient gradually improved with regards to mood, anxiety, psychosis, sleep and became more future oriented with improved insight and judgment. On the day of discharge patient denied any suicidal or homicidal ideations intent or plan denied any auditory or visual hallucinations. Patient endorsed wanting to live for their health and family. The patient denied any access to guns or weapons. Patient denied any paranoia and did not endorse any delusions. Patient does have a significant history of substance abuse and was counseled on abstaining from all substances including alcohol and marijuana. Patient elected to do outpatient substance use treatment program through their outpatient provider. Patient was also counseled on the medications and need for regular compliance and was encouraged to follow-up with their outpatient appointment for mental health and also for primary care. Prior to discharge a family meeting will be arranged by social work program coordinator to answer any questions and ensure safety upon discharge incuding making sure that guns/weapons are either removed from the home or locked away. Mental status exam: General Appearance: Patient appears to be thin, stated age is alert, pleasant, and cooperative. Patient is in no acute distress and has improved hygiene and grooming Behavior: Patient is calmly seated without any agitated behavior. Speech: Patient's speech is fluent and nonpressured. Mood/Affect: Patient reports their mood is "better", affect is congruent and euthymic. Suicidality/Homicidality: Patient denies having any suicidal or homicidal ideation intent or plan. Perceptions: Patient denies any auditory or visual hallucinations. Though content/process: There is no evidence of any delusional thought content and thought process is linear and goal-directed. More future oriented Memory and concentration: AOX3, grossly intact for the purposes of this session. Can spell "WORLD" backwards correctly. Judgment and insight: improved with guarded prognosis Impression: Psychosis unspecified Cannabis use disorder Nicotine dependence Plan: -Continue with discharge today as patient has improved and stabilized psychiatrically and is not currently an imminent threat to themself and/or others. -Continue medications: Abilify 2.5 mg daily for mood stabilization/psychosis, Remeron 7.5 mg nightly for insomnia/mood, propranolol 20 mg twice daily for akathisia/anxiety/restlessness -Patient was counseled on the need for medication compliance and appropriate follow-up at mental health and also primary care for medical issues. Patient verbalized understanding and agreed. -Social work to help coordinate patients discharge today. also to ensure safe home environment that guns/weapons are either removed from the home or locked away. Social work also to arrange for patients follow up appointments with [facility] for psychiatric care along with follow up with primary care provider. -Patient counseled on abstaining from recreational drugs and marijuana and alcohol. Was informed/educated on the adverse effects on their physical and mental health. Patient verbally agreed and understood. -Patient was instructed to return to the hospital or seek immediate medical care if their psychiatric or medical symptoms do worsen or reoccur. Allergies Allergy/AdvReac Type Severity Reaction Status Date / Time amoxicillin AdvReac hives Verified 01/13/25 19:32 Laboratory Results WBC 10.48 10*3/uL (4.50-10.00) H 01/15/25 08:35 RBC 5.71 10*6/uL (4.40-5.60) H 01/15/25 08:35 Hgb 15.7 g/dL (13.0-17.0) 01/15/25 08:35 Hct 48.1 % (39.6-50.0) 01/15/25 08:35 MCV 84.2 fL (80.0-97.0) 01/15/25 08:35 MCH 27.5 pg (27.0-32.0) 01/15/25 08:35 MCHC 32.6 g/dL (32.0-37.0) 01/15/25 08:35 Plt Count 325 10*3/uL (140-440) 01/15/25 08:35 MPV 11.1 fL (9.5-12.2) 01/15/25 08:35 Immature Gran % (Auto) 0.4 % 01/15/25 08:35 Neutrophils % 68.1 % 01/15/25 08:35 Lymphocytes % 22.9 % 01/15/25 08:35 Monocytes % 7.3 % 01/15/25 08:35 Eosinophils % 0.8 % 01/15/25 08:35 Basophils % 0.5 % 01/15/25 08:35 Immature Gran # 0.04 10*3/uL (0.00-0.04) 01/15/25 08:35 Neutrophils # 7.14 10*3/uL (1.80-7.70) 01/15/25 08:35 Lymphocytes # 2.40 10*3/uL (0.90-5.00) 01/15/25 08:35 Monocytes # 0.77 10*3/uL (0.20-1.00) 01/15/25 08:35 Eosinophils # 0.08 10*3/uL (0.04-0.35) 01/15/25 08:35 Basophils # 0.05 10*3/uL (0.00-0.10) 01/15/25 08:35 Haptoglobin 184.0 mg/dL (31.2-198.0) 01/16/25 07:38 Sodium 140 mmol/L (137-145) 01/15/25 08:35 Potassium 4.6 mmol/L (3.5-5.1) 01/15/25 08:35 Chloride 105 mmol/L (98-107) 01/15/25 08:35 Carbon Dioxide 22 mmol/L (22-30) 01/15/25 08:35 Anion Gap 13 mmol/L 01/15/25 08:35 BUN 16 mg/dL (9-20) 01/15/25 08:35 Creatinine 1.17 mg/dL (0.66-1.25) 01/15/25 08:35 Est GFR (CKD-EPI)AfAm >90 (>60 ml/min/1.73 sqM) 01/15/25 08:35 Est GFR (CKD-EPI)NonAf 83 (>60 ml/min/1.73 sqM) 01/15/25 08:35 Glucose 127 mg/dL (74-99) H 01/15/25 08:[address] Glu mg/dL 120 mg/dL 01/15/25 08:35 Hemoglobin A1c 5.8 % (<=6.0) 01/15/25 08:35 Calcium 10.3 mg/dL (8.4-10.2) H 01/15/25 08:35 Total Bilirubin 1.6 mg/dL (0.2-1.3) H 01/16/25 07:38 Conjugated Bilirubin 0.0 mg/dL (0.0-0.3) 01/16/25 07:38 Unconjugated Bilirubin 1.4 mg/dL (0.0-1.1) H 01/16/25 07:38 Delta Bilirubin 0.2 mg/dL (0.0-0.2) 01/16/25 07:38 AST 19 U/L (17-59) 01/15/25 08:35 ALT 14 U/L (4-49) 01/15/25 08:35 Alkaline Phosphatase 71 U/L (38-126) 01/15/25 08:35 Lactate Dehydrogenase 159 U/L (120-246) 01/16/25 07:38 Total Protein 8.1 g/dL (6.3-8.2) 01/15/25 08:35 Albumin 5.1 g/dL (3.5-5.0) H 01/15/25 08:35 Triglycerides 139.00 mg/dL (0.00-149.00) 01/15/25 08:35 Cholesterol 173.00 mg/dL (0.00-200.00) 01/15/25 08:35 LDL Cholesterol, Calc 109.7 mg/dL (0.0-131.0) 01/15/25 08:35 VLDL Cholesterol, Calc 27.80 mg/dL (5.00-40.00) 01/15/25 08:35 HDL Cholesterol 35.50 mg/dL (40.00-60.00) L 01/15/25 08:35 Cholesterol/HDL Ratio 4.87 Ratio 01/15/25 08:35 TSH 1.260 mIU/L (0.465-4.680) 01/15/25 08:35 Urine Opiates Screen Not Detected (NotDetected) 01/14/25 02:45 Ur Oxycodone Screen Not Detected (NotDetected) 01/14/25 02:45 Urine Methadone Screen Not Detected (NotDetected) 01/14/25 02:45 Ur Barbiturates Screen Not Detected (NotDetected) 01/14/25 02:45 U Tricyclic Antidepress Not Detected (NotDetected) 01/14/25 02:45 Ur Phencyclidine Scrn Not Detected (NotDetected) 01/14/25 02:45 Ur Amphetamines Screen Not Detected (NotDetected) 01/14/25 02:45 U Methamphetamines Scrn Not Detected (NotDetected) 01/14/25 02:45 U Benzodiazepines Scrn Not Detected (NotDetected) 01/14/25 02:45 Urine Cocaine Screen Not Detected (NotDetected) 01/14/25 02:45 U Marijuana (THC) Screen Detected (NotDetected) H 01/14/25 02:45 SARS-CoV-2 (PCR) Not Detected (Not Detectd) 01/14/25 11:00 Vital Signs Temp 97.6 F 01/19/25 09:00 Pulse 57 L 01/19/25 09:00 Resp 16 01/19/25 09:00 BP 127/88 01/19/25 09:00 Pulse Ox 100 01/19/25 09:00 FiO2 Health Concerns: Follow up with PCP out pt for lab review of bilirubin and determine need for ultrasound. Patient Condition at Discharge: Stable Plan - Discharge Summary Discharge Rx Participant: Yes New Discharge Prescriptions: New ARIPiprazole [Abilify] 2.5 mg PO DAILY 30 Days #15 tab Nicotine 7Mg/24Hr Patch [Habitrol] 1 patch TRANSDERM DAILY 14 Days #14 patch Propranolol [Inderal] 20 mg PO BID 30 Days #60 tab Nicotine Gum (Polacrilex) [Nicorette] 2 mg BUCCAL Q2HR PRN pieceofgum PRN Reason: Nicotine Cravings Mirtazapine [Remeron] 7.5 mg PO HS 30 Days #15 tab Discharge Medication List ARIPiprazole [Abilify] 2.5 mg PO DAILY 30 Days #15 tab 01/19/25 [Rx] Mirtazapine [Remeron] 7.5 mg PO HS 30 Days #15 tab 01/19/25 [Rx] Nicotine 7Mg/24Hr Patch [Habitrol] 1 patch TRANSDERM DAILY 14 Days #14 patch 01/19/25 [Rx] Nicotine Gum (Polacrilex) [Nicorette] 2 mg BUCCAL Q2HR PRN pieceofgum 01/19/25 [Rx] Propranolol [Inderal] 20 mg PO BID 30 Days #60 tab 01/19/25 [Rx] Follow up Appointment(s)/Referral(s): Darrion Briscoe MD [Primary Care Provider] - 1-2 days Discharge Disposition: HOME SELF-CARE
== END 2025-01-19 16:08 | disposition home or self-care (01) | DRG 750 ==
LOC: EC 17:40 → 3MHU 01-14 12:51
PROVIDERS: ADMIT Psychiatry & Neurology Psychiatry; ATTEND Psychiatry & Neurology Psychiatry
DX: F29 Unspecified psychosis not due to a substance or known physiological condition (principal); E83.52 Hypercalcemia; D72.829 Elevated white blood cell count, unspecified; F12.20 Cannabis dependence, uncomplicated; F17.200 Nicotine dependence, unspecified, uncomplicated; F22 Delusional disorders; R45.1 Restlessness and agitation; F41.0 Panic disorder [episodic paroxysmal anxiety]; F90.9 Attention-deficit hyperactivity disorder, unspecified type; G47.00 Insomnia, unspecified; R03.0 Elevated blood-pressure reading, without diagnosis of hypertension; Z79.899 Other long term (current) drug therapy; Z28.310 Unvaccinated for COVID-19; Z28.21 Immunization not carried out because of patient refusal; Z71.51 Drug abuse counseling and surveillance of drug abuser; Z71.89 Other specified counseling; Z88.0 Allergy status to penicillin; Z11.52 Encounter for screening for COVID-19
CPT/HCPCS: 80053; 80061; 80306; 82075; 82248; 83010; 83036; 83615; 84443; 85025; 87635; 99285

== ENCOUNTER 2025-01-21 17:52 | Emergency (ER) | payer OTHER ==
--- NOTE | 2025-01-21 17:55 | ED ---
Psych HPI - General Stated Complaint: mental health Time Seen by Provider: 01/21/25 17:55 Source: RN notes reviewed, old records reviewed Limitations: no limitations - History of Present Illness Initial Comments: This is a 29-year-old male petitioned by parents for evaluation of psychiatric history severe depression and suicidal ideation MD Complaint: suicidal ideation, feels depressed Associated Psychiatric Symptoms: depression, suicidal ideation History of same: Yes Quality: constant, getting worse Improves With: none Worsens With: none Associated Symptoms: denies other symptoms Treatments Prior to Arrival: placed on mental health hold If Self Harm: admits thoughts of self harm - Related Data Previous Rx's Medication Instructions Recorded ARIPiprazole [Abilify] 2.5 mg PO DAILY 30 Days #15 tab 01/19/25 Mirtazapine [Remeron] 7.5 mg PO HS 30 Days #15 tab 01/19/25 Nicotine 7Mg/24Hr Patch [Habitrol] 1 patch TRANSDERM DAILY 14 Days 01/19/25 #14 patch Nicotine Gum (Polacrilex) 2 mg BUCCAL Q2HR PRN pieceofgum 01/19/25 [Nicorette] Propranolol [Inderal] 20 mg PO BID 30 Days #60 tab 01/19/25 Allergies Allergy/AdvReac Type Severity Reaction Status Date / Time amoxicillin AdvReac hives Verified 01/21/25 18:00 Review of Systems ROS Statement: Those systems with pertinent positive or pertinent negative responses have been documented in the HPI. ROS Other: All systems not noted in ROS Statement are negative. Past Medical History Past Medical History: No Reported History Additional Past Medical History / Comment(s): FX RT ANKLE about 5-6 years ago History of Any Multi-Drug Resistant Organisms: None Reported Past Surgical History: No Surgical Hx Reported Additional Past Anesthesia/Blood Transfusion Reaction / Comment(s): NO PRIOR SURGICAL HX Past Psychological History: ADD/ADHD Smoking Status: Current every day smoker Past Alcohol Use History: None Reported Past Drug Use History: Marijuana - Past Family History Mother Family Medical History: Cancer General Exam General appearance: alert, in no apparent distress Head exam: Present: atraumatic, normocephalic, normal inspection Eye exam: Present: normal appearance, PERRL, EOMI. Absent: scleral icterus, conjunctival injection, periorbital swelling ENT exam: Present: normal exam, mucous membranes moist Neck exam: Present: normal inspection. Absent: tenderness, meningismus, lymphadenopathy Respiratory exam: Present: normal lung sounds bilaterally. Absent: respiratory distress, wheezes, rales, rhonchi, stridor Cardiovascular Exam: Present: regular rate, normal rhythm, normal heart sounds. Absent: systolic murmur, diastolic murmur, rubs, gallop, clicks GI/Abdominal exam: Present: soft, normal bowel sounds. Absent: distended, tenderness, guarding, rebound, rigid Extremities exam: Present: normal inspection, full ROM, normal capillary refill. Absent: tenderness, pedal edema, joint swelling, calf tenderness Back exam: Present: normal inspection Neurological exam: Present: alert, oriented X3, CN II-XII intact Psychiatric exam: Present: normal affect, normal mood Skin exam: Present: warm, dry, intact, normal color. Absent: rash Course Vital Signs 01/21/25 01/21/25 17:56 23:09 Temperature 97.8 F Pulse Rate 89 76 Respiratory 20 16 Rate Blood Pressure 145/95 138/78 O2 Sat by Pulse 98 100 Oximetry - Reevaluation(s) Reevaluation #1: 01/21/25 19:09 Medical records reviewed Reevaluation #2: 01/21/25 19:09 Medically cleared for psychiatric evaluation Reevaluation #3: Differential Mental Health Depression, anxiety, bipolar, psychosis, schizophrenia, borderline personality, situational depression, adjustment disorder, behavioral disorder, brain tumor, malingering, substance abuse, encephalopathy, medication reaction, dementia, hypothyroidism, degenerative neurologic disorder, lupus.... This is not meant to be all-inclusive list Reevaluation #4: Was pt. sent in by a medical professional or institution (, PA, ART MANAGER, urgent care, hospital, or detention...) When possible be specific @ -no Did you speak to anyone other than the patient for history (EMS, parent, family, police, friend...)? What history was obtained from this source @ -no Did you review nursing and triage notes (agree or disagree)? Why? @ -agree Are old charts reviewed (outside hosp., previous admission, EMS record, old EKG, old radiological studies, urgent care reports/EKG's, detention records)? Report findings @ -yes Differential Diagnosis (chest pain, altered mental status, abdominal pain women, abdominal pain men, vaginal bleeding, weakness, fever, dyspnea, syncope, headache, dizziness, GI bleed, back pain, seizure, CVA, palpatations, mental health, musculoskeletal)? @ -prior EKG interpreted by me (3pts min.). @ -no X-rays interpreted by me (1pt min.). @ -no CT interpreted by me (1pt min.). @ -no U/S interpreted by me (1pt. min.). @ -no What testing was considered but not performed or refused? (CT, X-rays, U/S, labs)? Why? @ -none What meds were considered but not given or refused? Why? @ -none Did you discuss the management of the patient with other professionals (professionals i.e. , PA, ART MANAGER, lab, RT, psych nurse, geriatric social work professor, contract associate manager, teacher, maritime officer, transplant case manager)? Give summary @ -no Was smoking cessation discussed for >3mins.? @ -no Was critical care preformed (if so, how long)? @ -no Were there social determinants of health that impacted care today? How? (Homel essness, low income, unemployed, alcoholism, drug addiction, transportation, low edu. Level, literacy, decrease access to med. care, senior living, rehab)? @ -none Was there de-escalation of care discussed even if they declined (Discuss DNR or withdrawal of care, Hospice)? DNR status @ -no What co-morbidities impacted this encounter? (DM, HTN, Smoking, COPD, CAD, Cancer, CVA, ARF, Chemo, Hep., AIDS, mental health diagnosis, sleep apnea, morbid obesity)? @ -none Was patient admitted / discharged? Hospital course, mention meds given and route, prescriptions, significant lab abnormalities, going to OR and other pertinent info. @ - 29 male seen eval by psychiatry, patient does safety plan and is okay for discharge home Discharge Undiagnosed new problem with uncertain prognosis? @ -no Drug Therapy requiring intensive monitoring for toxicity (Heparin, Nitro, Insulin, Cardizem)? @ -no Were any procedures done? @ -no Diagnosis/symptom? @ -Depression Acute, or Chronic, or Acute on Chronic? @ -Acute Uncomplicated (without systemic symptoms) or Complicated (systemic symptoms)? @ -Complicated Side effects of treatment? @ -no Exacerbation, Progression, or Severe Exacerbation? @ -exacerbation Poses a threat to life or bodily function? How? (Chest pain, [place], [place], pneumonia, PE, COPD, DKA, ARF, appy, cholecystitis, CVA, Diverticulitis, Homicidal, Suicidal, threat to staff... and all critical care pts) @ -no Medical Decision Making - Medical Decision Making 29 male seen eval by psychiatry, patient does safety plan and is okay for disc harge home - Lab Data Lab Results 01/21/25 Range/Units 20:11 Urine Opiates Screen Not Detected (NotDetected) Ur Oxycodone Screen Not Detected (NotDetected) Urine Methadone Screen Not Detected (NotDetected) Ur Barbiturates Screen Not Detected (NotDetected) U Tricyclic Antidepress Not Detected (NotDetected) Ur Phencyclidine Scrn Not Detected (NotDetected) Ur Amphetamines Screen Not Detected (NotDetected) U Methamphetamines Scrn Not Detected (NotDetected) U Benzodiazepines Scrn Not Detected (NotDetected) Urine Cocaine Screen Not Detected (NotDetected) U Marijuana (THC) Screen Detected H (NotDetected) Disposition Clinical Impression: Acute anxiety, Depression, Psychosis, Cannabis use disorder Disposition: HOME SELF-CARE Condition: Fair Is patient prescribed a controlled substance at d/c from ED?: No Referrals: Darrion Briscoe MD [Primary Care Provider] - 1-2 days
[2025-01-21 18:00] VITALS: TEMP 97.8
[2025-01-21 22:06] LABS: Amphetamine Screen,Urine Not Detected (NotDetected); Barbiturate Screen,Urine Not Detected (NotDetected); Benzodiazepines Screen,Urine Not Detected (NotDetected); Cocaine Screen,Urine Not Detected (NotDetected); Methadone Screen, Urine Not Detected (NotDetected); Opiate Screen,Urine Not Detected (NotDetected); Oxycodone Screen, Urine Not Detected (NotDetected); Phencyclidine Screen,Urine Not Detected (NotDetected); Tricyclic Antidepressant,Urine Not Detected (NotDetected); Urn Cannabinoid Scrn Detected (NotDetected)
[2025-01-21 23:10] VITALS: BP 138/78; PULSE 76; RESP 16
== END 2025-01-21 23:10 | disposition home or self-care (01) ==
LOC: EC 17:52
DX: F12.90 Cannabis use, unspecified, uncomplicated (principal); F32.A Depression, unspecified; F41.9 Anxiety disorder, unspecified; F17.200 Nicotine dependence, unspecified, uncomplicated; Z88.0 Allergy status to penicillin
CPT/HCPCS: 80306; 82075; 99285